=== PATIENT | female | born 1950 | race Caucasian/White ===

== ENCOUNTER 2019-11-27 07:34 | Day surgery (SDC) | payer OTHER ==
--- NOTE | 2019-11-26 17:23 | RAD REPORT ---
EXAM DESCRIPTION: RAD - Chest Pa And Lat (2 Views) - 11/26/2019 5:18 pm CLINICAL HISTORY: preop Chest pain. COMPARISON: Chest Pa And Lat (2 Views) dated 10/07/2019 FINDINGS: The lungs are clear. The heart is normal in size. No displaced fractures. IMPRESSION: No acute or concerning finding suspected.
[2019-11-26 17:31] LABS: Absolute Lymphocytes (CBC) 2.5 K/uL (0.7-4.9); Basophils % 0.3 % (0-1.3); MPV 9.1 fL (7.6-11.3)
[2019-11-26 17:44] LABS: Potassium 3.7 mmol/L (3.5-5.1)
[2019-11-26 17:50] LABS: ALT/SGPT 29 U/L (12-78); AST/SGOT 32 U/L (15-37); Albumin 3.4 g/dL (3.4-5.0); Alkaline Phosphatase 92 U/L (45-117); Amylase Level 23 U/L (25-115); Bilirubin Direct < 0.1 mg/dL (0-0.2); Bilirubin Total 0.4 mg/dL (0.2-1.0); Lipase 105 U/L (73-393); Protein, Total 7.3 g/dL (6.4-8.2)
[2019-11-27] MEDS ORDERED: NA CIT/CITRIC AC 30 ML ORAL UDC PO ONE (07:50)
[2019-11-27] MEDS ORDERED: Ringers Lactate 1,000 ML IV ONE (07:57)
[2019-11-27] MEDS ORDERED: NA CIT/CITRIC AC 30 ML ORAL UDC ONE (07:58)
[2019-11-27] MEDS ORDERED: CIPROFLOXACIN 400mg IV 400 MG/200 ML BAG IV ONE (08:28)
[2019-11-27] MEDS ORDERED: propofoL 200 MG/20 ML VIAL IV ONE (08:38)
[2019-11-27] MEDS ORDERED: MIDAZOLAM HCL 2 MG/2 ML INJ ONE (08:38)
[2019-11-27] MEDS ORDERED: LIDOCAINE 2% MPF 5 ML VIAL ONE (08:38)
[2019-11-27] MEDS ORDERED: GLYCOPYRROLATE 0.2 MG/ML SYR ONE (08:38)
[2019-11-27] MEDS ORDERED: FENTANYL CITR 250 MCG/5 ML ONE (08:39)
[2019-11-27] MEDS ORDERED: ONDANSETRON 4 MG/2 ML VIAL ONE ×2 (08:49→10:55)
[2019-11-27] MEDS ORDERED: ROCURONIUM 50 MG/5 ML VIAL IV ONE (09:09)
[2019-11-27] MEDS ORDERED: EPHEDRINE SULF 50 MG/ML VIAL ONE (09:50)
[2019-11-27] MEDS ORDERED: HYDRALAZINE HCL 20 MG/ML VIAL ONE (09:53)
--- NOTE | 2019-11-27 10:00 | P.BOP ---
Preoperative diagnosis: symptomatic cholelithiasis, gb polyps Postoperative diagnosis: same Primary procedure: Laparoscopic cholecystectomy Auto Technician Mechanic: NELLY ALVAREZ (GATE PERSON) Estimated blood loss: <10cc Specimen: gb Findings: as above Anesthesia: General Complications: None Transferred to: Recovery Room Condition: Good
[2019-11-27] MEDS ORDERED: TRAMADOL 37.5mg/APAP 325mg PER TAB ONE (11:36)
[2019-11-27 11:43] VITALS: O2SAT 98
[2019-11-27 13:16] VITALS: BP 123/56; TEMP 97.8
--- NOTE | 2019-11-27 14:03 | EKG ---
Test Date: 2019-11-26 Test Time: 16:47:20 Barrel Raiser: MAILE MEASUREMENT RESULTS: Intervals: Rate: 72 VA: 134 QRSD: 80 QT: 406 QTc: 444 [place]: P: 42 VA: 134 QRS: 1 T: 20 INTERPRETIVE STATEMENTS: Normal sinus rhythm Normal ECG Compared to ECG 06/12/2001 13:43:00 No significant changes Electronically Signed On 11-27-19 14:02:18 CADASTRAL SURVEYOR by Anibal Perez
--- NOTE | 2019-11-27 20:34 | OP ---
Date of Procedure: 11/27/2019 Surgeon: González Gonzalez MD Preoperative Diagnoses: Symptomatic cholelithiasis, gallbladder polyps. Postoperative Diagnoses: Symptomatic cholelithiasis, gallbladder polyps. Procedure: Laparoscopic cholecystectomy. Specimen: Gallbladder. Anesthesia: General plus local. Indications: This is a case of a 69-year-old patient, comes to us with above diagnosis. Fully expla ined the benefits, alternatives, and risks of laparoscopic, possible open cholecystectomy, which incl ude but are not limited to infection, bleeding, damage to adjacent structures, anesthesia complicatio n, choledocholithiasis, bile leak, pancreatitis, [place], and even . She also understands this may n ot relieve her symptoms. She might need more than one surgical intervention. She understood, signed a consent. Description Of Procedure: Patient was brought to the operating room, placed in supine position. Ane sthesia was done without complication. Abdominal area was prepped and draped in a sterile fashion. Marcaine 0.5% injectable local anesthetic followed by sharp incision of skin in the infraumbilical re gion. Incision was carried down to fascia, which was opened under direct vision. Peritoneum was enc ountered, opened under direct vision. Vicryl #1 placed inside the fascia. Apoorva trocar was careful ly introduced. No bleeding was obtained. I placed 3 more trocars, 5 mm each one of them, in the rig ht upper quadrant using same technique, which consisted of local anesthetic, sharp incision of the sk in, and introduction of the trocars under direct vision. This allowed me to put a grasper in the fun dus of the gallbladder, another grasper in the infundibulum, retracted the gallbladder in the inferol ateral fashion exposing the triangle of Calot. The cystic duct and cystic artery were cleared and is olated circumferentially and a connection between those and the gallbladder were clearly identified. I proceeded to ligate those by using at least 3 clips proximal, 1 clip distally, ligation in middle. Same was done with the cystic artery. No bile leak. No bleeding. The gallbladder was removed fro m liver using Bovie cauterizer and removed from abdominal cavity using an EndoCatch through an umbili shaw incision. The area was inspected once again. No bile leak. No bleeding. No other masses seen. At that moment, I proceeded to remove the trocars under direct vision. Deflated the pneumoperitone um. Closed the fascia with #1 Vicryl. Irrigated subcutaneous tissue, closed that with 3-0 chromic a nd then the skin in a the subcuticular fashion with 3-0 chromic and Steri-Strips on top. Sponge coun t and instrument counts were correct. Patient tolerated the procedure well. Patient was sent to [facility] over in stable condition. MAYELA/YEIMY Voice ID: [id number] Report ID: [id number]
--- NOTE | 2019-11-27 20:37 | DS ---
Date of Discharge: 11/27/2019 Diagnoses: Symptomatic cholelithiasis, gallbladder polyps. Disposition: Home. Activities: As tolerated. Followup: Follow up in my office in 1 week. Call for appointment at [phone]. Keep area dry for 8 hours then may shower. Keep Steri-Strips intact. Medications: Include Ultracet q.4 hours p.r.n. pain. She has allergies to codeine, but she does not recall any allergies to any Ultracet. I am going to g o that route. MAYELA/YEIMY Voice ID: [id number] Report ID: [id number]
== END 2019-11-27 12:50 | disposition home or self-care (01) ==
LOC: OR 07:34
PROVIDERS: ATTEND Surgery
PROC: 0FT44ZZ Resection of Gallbladder, Percutaneous Endoscopic Approach (ICD-10-PCS; principal; 2019-11-27 09:15)
DX: K80.10 Calculus of gallbladder with chronic cholecystitis without obstruction (principal); Z88.0 Allergy status to penicillin; Z88.6 Allergy status to analgesic agent; Z80.1 Family history of malignant neoplasm of trachea, bronchus and lung
CPT/HCPCS: 93005; 85025; 80048; 36415; 82150; 80076; 88304; 83690; 71046; 47562; J0360; J2704; J2250; J3010; J7120; J2405 ×2; J0744